=== PATIENT | female | born 1940 | race Caucasian/White ===

== ENCOUNTER → 2016-08-19 | Outpatient (CLI) | payer OTHER ==
[~2016-08-19] MED LIST: ALTACE5 MG PO; ASPIRIN81 M1 PO; CALCIUM 600 +1 EAC8 PO; OMEPRAZOLE20 MG PO; RAMIPRIL; SIMVASTATIN20 MG PO
== END | disposition home or self-care (01) ==
LOC: MAMMO 03:53
DX: Z12.31 Encounter for screening mammogram for malignant neoplasm of breast (principal)

== ENCOUNTER → 2016-11-03 | Outpatient (CLI) | payer OTHER | END | disposition home or self-care (01) | LOC: CT 02:51 | DX: I25.10 Atherosclerotic heart disease of native coronary artery without angina pectoris (principal); J40 Bronchitis, not specified as acute or chronic; R06.00 Dyspnea, unspecified ==

== ENCOUNTER → 2016-11-29 | Outpatient (CLI) | payer OTHER | END | disposition home or self-care (01) | LOC: RAD 10:08 | DX: R06.2 Wheezing (principal); R05 Cough; R06.02 Shortness of breath; I10 Essential (primary) hypertension ==

== ENCOUNTER → 2016-12-06 | Outpatient (CLI) | payer OTHER ==
--- NOTE | ~2016-12-06 | PF ---
[place], [place] PULMONARY FUNCTION TEST [facility]: [id number] UNIT #: [id number] ROOM: DOCTOR: CAROLINA JIMNEEZ MD,ZULY BIRTHDATE: [birth year] DOS: 12/06/[address] Bridget Navarro. HISTORY: The patient reported as 76-year-old female, height of 63 inches, weight of 210 pounds, BMI 37.2. The testing was done for assessment of symptoms of productive cough, wheezing and dyspnea with exertion. There were no past tobacco use. SPIROMETRY: The FVC was noted 2.65 liters, 97% predicted value normal. FEV1 was noted 2.08 liters at 102% predicted value normal as well. Ratio of FEV1/FVC was noted as 79%. Flow volume was suggestive of mild obstructive airway pattern. The patient's lung volumes, thoracic gas volume recorded at 75%, residual volume of 87%, total lung capacity 90%. Lung volumes were noted normal. The patient's lung diffusion was noted 91%, normal. The patient's airway resistance, passive conductance was normal. IMPRESSION: The test is suggestive only of mild obstructive airway pattern with flow volume loop otherwise normal pulmonary function test was noted. Clinical correlation would be advised. ZULY FIGUEROA MD CM:PFREPORT:PULMONARY FUNCTION TEST [id number] ZULY JIMENEZ MD
== END | disposition home or self-care (01) ==
LOC: CP 10:10
DX: R06.2 Wheezing (principal)

== ENCOUNTER → 2017-03-06 | Outpatient (CLI) | payer OTHER | END | disposition home or self-care (01) | LOC: RAD 01:04 | DX: M85.852 Other specified disorders of bone density and structure, left thigh (principal); N95.9 Unspecified menopausal and perimenopausal disorder; E55.9 Vitamin D deficiency, unspecified; Z78.0 Asymptomatic menopausal state ==

== ENCOUNTER → 2017-10-25 | Outpatient (CLI) | payer OTHER ==
[~2017-10-25] MED LIST changes: +ESTRADIOL T; +FLOVENT HFA10.6 GM PO; +GLUCOSAMINE1000 MG PO; +IBU800 M1 PO; +MULTI-VITAMIN1 EACH PO; -RAMIPRIL; +RAMIPRIL PO
--- NOTE | ~2017-10-25 | ST ---
[place], [place] EXERCISE STRESS TEST REPORT [id number] UN[facility] #: [id number] ROOM: DOCTOR: LIZET LONDON MD BIRTHDATE: [birth year] DOS: 10/25/2017 PHARMACOLOGIC STRESS TEST REASON: Chest discomfort. PROCEDURE: The patient was given rapid infusion of regadenoson 0.4 mg intravenously followed by a saline flush. She experienced lightheadedness and dyspnea with the infusion. Her resting electrocardiogram was normal. With the infusion, she did have a normal cardiac acceleration. Her resting heart rate of 83 mellissa to 123. She did develop frequent PVCs in a pattern of bigeminy that resolved spontaneously. No diagnostic ST changes were seen. Forty seconds after the infusion of regadenoson, she was given radionuclide intravenously. IMPRESSION: 1. Well-tolerated infusion of regadenoson. 2. Frequent premature ventricular contractions post infusion, resolved spontaneously. 3. Radionuclide administered. Please see the separate imaging report for further details of the patient's stress test results. LIZET LONDON MD CM:STRESS:EXERCISE STRESS TEST REPORT [id number] LIZET LONDON MD
== END | disposition home or self-care (01) ==
LOC: CARD 02:43
DX: R07.89 Other chest pain (principal); R53.81 Other malaise

== ENCOUNTER 2018-01-10 16:05 | Inpatient (IN) | payer OTHER ==
[~2018-01-10] VITALS: Ht 160 cm; Wt 96.6 kg
--- NOTE | ~2018-01-10 | EKG ---
[place], [place] ELECTROCARDIOGRAM REPORT NAME: MIRANDA MIGUEL UNIT #: [id number] ROOM: 512 DOCTOR: GUANAKITO DRAFT REPORT BIRTHDATE: [address] [facility] Test Date: 2018-01-11 Test Time: 03:43:05 Pat Name: MIRANDA MIGUEL Department: Room: 512 1 Gender: F Marketing Outreach Coordinator: : 1940 Requested By: BRO LACKEY Order Number: [id number] Reading MD: Nadeem Bueno MD Measurements Intervals [place] Rate: 90 P: 60 [place]: 183 QRS: -7 QRSD: 88 T: 70 QT: 395 QTc: 484 Interpretive Statements Sinus rhythm Abnormal R-wave progression, early transition Compared to ECG 01/10/2018 16:35:37 Left ventricular hypertrophy no longer present Electronically Signed On 01-11-2018 20:46:32 PDT by Nadeem Bueno MD CM:EKGRPT:ELECTROCARDIOGRAM REPORT [id number] BRO GAYTAN DRAFT REPORT BRO LACKEY DO
--- NOTE | ~2018-01-10 | PR ---
[place], [place] PROGRESS NOTE NAME: MIRANDA MIGUEL UNIT #: [id number] ROOM: 512 DOCTOR: LIZET LONDON MD BIRTHDATE: [birth year] DOS: 01/12/2018 SUBJECTIVE: The patient was seen at her bedside today 01/12/2018 with her in attendance. She thinks that she is feeling somewhat better. There is some concern that her left arm weakness may be related to rotator cuff injury or orthopedic problems, but I still do not think that explains all of her presenting symptoms including her lightheadedness and difficulty with ambulation. Happily her MRI and MRA showed no stroke or carotid vascular disease and there is no evidence for intracranial vascular disease. I reviewed her monitor, she does have episodes of sinus tachycardia, but no atrial fibrillation was documented. PHYSICAL EXAMINATION: VITAL SIGNS: Today, her pulse is 100 and regular, blood pressure is 155/83. NECK: Supple. She has no jugular distention. Carotids are full. LUNGS: Respirations are unlabored. Her chest is clear. HEART: Had a regular rhythm with an S4 gallop. EXTREMITIES: Showed no edema. An echocardiogram has been performed, but is not yet available for review. IMPRESSION: 1. Probable transient ischemic attack. 2. Essential hypertension. 3. Hyperlipidemia. 4. History of rheumatic fever as a child with negative examination at the present time. PLAN: We will review her ultrasound. If it does not show any significant valvular disease, then she may be discharged to home on dual antiplatelet therapy. She will need to have a physician to continue to monitor her blood pressure and make adjustments as appropriate. I think that an evaluation by a neurologist as an outpatient would also be helpful. We will plan on having her wear a 30-day mobile cardiac outpatient telemetry device (30-day event recorder). I will follow up with her in the office in about 6 weeks. I thank the hospitalist physicians for asking our advice regarding her care. [place], [place] PROGRESS NOTE NAME: MIRANDA MIGUEL UNIT #: [id number] ROOM: 512 DOCTOR: LIZET LONDON MD BIRTHDATE: [birth year] LIZET LONDON MD CM:PNTRANS [id number] LIZET LONDON MD 01/12/18 0959 interface
--- NOTE | ~2018-01-10 | EKG ---
[place], [place] ELECTROCARDIOGRAM REPORT NAME: MIRANDA MIGUEL UNIT #: [id number] ROOM: 512 DOCTOR: GUANAKITO DRAFT REPORT BIRTHDATE: [birth year] [facility] Test Date: 2018-01-11 Test Time: 01:09:10 Pat Name: MIRANDA MIGUEL Department: Room: 512 1 Gender: F Campground Hand: ANDREA : 1940 Requested By: BRO LACKEY Order Number: [id number] Reading MD: Nadeem Bueno MD Measurements Intervals [place] Rate: 88 P: 71 [place]: 147 QRS: -5 QRSD: 89 T: 84 QT: 371 QTc: 449 Interpretive Statements Sinus rhythm Abnormal R-wave progression, early transition Nonspecific T abnormalities, lateral leads Compared to ECG 01/10/2018 16:35:37 T-wave abnormality now present Left ventricular hypertrophy no longer present Electronically Signed On 01-11-2018 20:46:02 PDT by Nadeem Bueno MD CM:EKGRPT:ELECTROCARDIOGRAM REPORT [id number] BRO GAYTAN DRAFT REPORT BRO LACKEY DO
--- NOTE | ~2018-01-10 | EKG ---
[place], [place] ELECTROCARDIOGRAM REPORT NAME: MIRANDA MIGUEL UNIT #: [id number] ROOM: 512 DOCTOR: GUANAKITO DRAFT REPORT BIRTHDATE: [birth year] [facility] Test Date: 2018-01-10 Test Time: 16:35:37 Pat Name: MIRANDA MIGUEL Department: Room: 512 Gender: F Production Support Developer: CODY HASTINGSB: 1940 Requested By: JG BILLY Order Number: [id number] Reading MD: Nadeem Bueno MD Measurements Intervals [place] Rate: 86 P: 41 [place]: 139 QRS: -20 QRSD: 86 T: 56 QT: 372 QTc: 445 Interpretive Statements Sinus rhythm Left ventricular hypertrophy Baseline wander in lead(s) II,III,aVF Electronically Signed On 01-10-2018 19:06:38 PDT by Nadeem Bueno MD CM:EKGRPT:ELECTROCARDIOGRAM REPORT [id number] GJ GAYTAN DRAFT REPORT JG BILLY DO
--- NOTE | ~2018-01-10 | CON ---
[place], [place] REPORT OF CONSULTATION NAME: MIRANDA MIGUEL UNIT #: [id number] ROOM: 512 DOCTOR: LIZET LONDON MD BIRTHDATE: [birth year] DOS: 01/11/2018 CARDIOLOGY CONSULTATION REASON FOR CONSULTATION: Transient ischemic attack. CHIEF COMPLAINT: Unsteady gait and left-sided weakness. HISTORY OF PRESENT ILLNESS: The patient is a 77-year-old woman who has no previous history of cerebrovascular or coronary artery disease. She does have a history of hypertension. She did undergo myocardial perfusion stress test within the last several months that showed no evidence for ischemia. She was in her normal state of health until she awakened 5 days ago and felt lightheaded. She felt unsteady and had difficulty with her balance. She stated that this persisted throughout the day. The following day, she did have some heaviness in her left arm. She was seen by her primary physician the next day who noticed a gait disturbance. She was encouraged to come to the hospital and did present on 01/10/2018. Her symptoms were felt to be compatible with a stroke or transient ischemic attack. A CT scan of the head showed no acute change or bleed. She was hospitalized for further assessment. The patient still has some mild lightheadedness. She states that her left arm is still slightly heavy and she still feels a little unstable on her feet despite the fact that she has had symptoms for several days. PAST MEDICAL HISTORY: Includes 1. Rheumatic fever as a child. The patient did have a heart murmur at that time, but has not been documented as having a heart murmur as an adult. 2. Essential hypertension. 3. Hyperlipidemia. 4. Osteoarthritis. 5. 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 FAMILY HISTORY: Her father from renal insufficiency in his 50s. Her mother of leukemia in her 40s. MEDICATIONS PRIOR TO ADMISSION: Aspirin 81 mg b.i.d., calcium carbonate 500 mg daily, vitamin D 5000 units daily, Flovent 1 puff b.i.d., glucosamine 1000 mg daily, ibuprofen 800 mg p.o. t.i.d. p.r.n., multivitamin daily, omeprazole 20 mg daily, ramipril 5 mg daily, simvastatin 20 mg daily and Estrace cream topically 2 times a week. ALLERGIES: SHE LISTS ALLERGIES TO [employer]UIT EXTR[employer] AND STATES THAT SHE GETS CRAMPING IF SHE TRIES TO TAKE HIGH DOSES OR HIGH POTENCY STATIN. REVIEW OF SYSTEMS: The patient denies diplopia or loss of vision. She denies syncope. She denies nausea or vomiting. She denies fevers, chills, sweats or recent weight change. She does have some focal weakness of her left arm. She denies hemoptysis or hematemesis. She denies change in bowel or bladder habits. She denies blood in her stools or urine. She denies any skin rashes. She [place], [place] REPORT OF CONSULTATION NAME: MIRANDA MIGUEL UNIT #: [id number] ROOM: 512 DOCTOR: LIZET LONDON MD BIRTHDATE: [birth year] denies any peripheral edema. She denies heat or cold intolerance. She denies any polyuria or polydipsia. The remainder of the review of systems is negative except as noted above. SOCIAL HISTORY: The patient has never smoked. She does not consume excessive amounts of alcohol. PHYSICAL EXAMINATION: GENERAL: The patient is an overweight white female, awake, alert and oriented. VITAL SIGNS: Pulse is 95 and regular, blood pressure is 151/85. She is afebrile. She weighs 96.6 kg and has a body mass index 37.8. HEENT: Normocephalic and atraumatic. Extraocular muscles are intact. Sclerae are clear. Pupils equal, round and react to light. The oral mucosa is moist. Tongue is midline. NECK: Supple. She has no jugular distention. Carotids are full. There are no bruits. She has no neck or supraclavicular masses and no thyromegaly. RESPIRATORY: Respirations are unlabored. Her chest is clear to auscultation and percussion. She has no presacral edema or chest wall tenderness. CARDIOVASCULAR: Her heart has a regular rhythm with an S4 gallop. There is no S3 or murmur. The PMI is not displaced. There is no precordial heave, lift or thrill. ABDOMEN: Soft and normally active without masses, organomegaly or bruits. EXTREMITIES: Showed no edema. Peripheral pulses are easily palpated bilaterally. NEUROLOGIC: Pupils are equal, round and react to light. She has no nystagmus. She does have a slight left pronator drift. Her left hand die sizer is weaker than the right. No other focal defects are seen. LABORATORY DATA: I reviewed her electrocardiogram. It shows sinus rhythm with voltage criteria for left ventricular hypertrophy, but is an otherwise unremarkable tracing. Her monitor strips show no evidence for atrial fibrillation since her admission. Chest x-ray was unremarkable. Hemoglobin is 15.4, hematocrit 46.1. There were 9600 white cells, 220,000 platelets. INR is 1.0. Sodium is 142, potassium 4.1, chloride 108, CO2 of 27, BUN 15, creatinine 0.81, GFR is greater than 60. Hemoglobin A1c is 5.8, serial troponins have been negative. Total cholesterol is 172, LDL 95, HDL 45, triglycerides 158. TSH is normal at 4.57. IMPRESSION: 1. Transient ischemic attack versus small stroke. The patient does have symptoms and focal defects persisted despite 5 days of symptoms. Etiology not yet determined. 2. Essential hypertension. 3. Hyperlipidemia, well controlled. 4. History of rheumatic fever with a negative exam today. PLAN: For now, we will continue her on a heart monitor. We will add Plavix to [place], [place] REPORT OF CONSULTATION NAME: MIRADNA MIGUEL UNIT #: [id number] ROOM: 512 DOCTOR: LIZET LONDON MD BIRTHDATE: [birth year] her regimen as dual antiplatelet therapy. We will increase her UGERRERO inhibitor to better control her blood pressure. Since her symptoms appear to be posterior circulation in origin, we will be getting an MRI of the brain along with an MRA of her cerebral circulation to determine if she has cerebrovascular cause for her symptoms. Further recommendations will depend upon her response to therapy and the findings of the MRI and MRA. A carotid ultrasound has also been ordered and will be reviewed when it is available. An echocardiogram is also pending and will be reviewed for signs of valvular heart disease. [facility] and I thank the hospitalist physicians for asking our advice regarding her assessment. LIZET LONDON MD CM:CONSTR:REPORT OF CONSULTATION 3 01/11/182021 interface
[2018-01-10 16:08] VITALS: BP 174/94
[2018-01-10 16:31] LABS: BASO # 0.1 10*3/uL (0.0-0.1); BASO % 0.6 % (0.0-1.0); EOS # 0.3 10*3/uL (0.0-0.4); EOS % 3.3 % (1.0-4.0); HEMATOCRIT 49.1 % (37.0-47.0); HEMOGLOBIN 16.2 g/dl (12.0-16.0); LYMPH # 2.7 10*3/uL (1.3-4.4); LYMPH % 25.6 % (27.0-41.0); MEAN CELL VOLUME 90.1 fl (81.0-99.0); MEAN CORPUSCULAR HGB 29.7 pg (27.0-31.0); MEAN PLATELET VOLUME 11.5 fl (9.6-12.3); MONO % 9.3 % (3.0-9.0); NEUT # 6.4 10*3/uL (2.3-7.9); PLATELET COUNT AUTOMATED 206 10*3/uL (130-400); RED BLOOD COUNT 5.45 10*6/uL (4.10-5.10); RED CELL DISTRI WIDTH 13.6 % (0-14.5); WHITE BLOOD COUNT 10.4 10*3/uL (4.8-10.8)
[2018-01-10 16:39] LABS: ACT PARTIAL THROMBO TIME 23.5 SECONDS (20.8-31.5)
[2018-01-10 16:53] LABS: ALBUMIN 3.7 gm/dl (3.1-4.5); ALKALINE PHOSPHATASE 106 U/L (45-117); BUN 21 mg/dl (7-24); CHLORIDE 107 mmol/L (98-107); CREATININE 0.85 mg/dL (0.55-1.02); LIPASE 135 U/L (73-393); POTASSIUM 4.1 mmol/L (3.5-5.1); SGOT/AST 24 IU/L (3-35); SGPT/ALT 37 U/L (12-78); SODIUM 140 mmol/L (136-145); TOTAL PROTEIN 7.6 gm/dL (6.4-8.2)
[2018-01-10 17:01] LABS: TROPONIN I < 0.015 ng/ml (<0.045)
[2018-01-10 18:23] LABS: BILIRUBIN NEGATIVE (NEGATIVE); BLOOD NEGATIVE (NEGATIVE); CLARITY SL CLOUDY (CLEAR); COLOR YELLOW (YELLOW); GLUCOSE NEGATIVE (NEGATIVE); KETONE NEGATIVE (NEGATIVE); LEUKO ESTERASE NEGATIVE (NEGATIVE); NITRITE NEGATIVE (NEGATIVE); SPECIFIC GRAVITY 1.025 (1.005-1.030); UROBILINOGEN 0.2 E.U./dl (0.2-1.0)
[2018-01-10 18:52] LABS: BACTERIA 1+; EPITHELIAL CELLS TNTC; RBC 0-2 rbc/hpf (0-2)
[2018-01-10 19:19] VITALS: BP 165/104
[2018-01-10 20:00] VITALS: BP 159/85
[2018-01-10] MEDS ORDERED: VITAMIN D5000 UNIT PO (20:14)
[2018-01-10] MEDS ORDERED: CALCIUM500 M1 PO (20:15)
[2018-01-11] VITALS (7 sets, daily range): BP systolic 124–156; BP diastolic 68–87
[2018-01-11 06:26] LABS: BASO % 0.4 % (0.0-1.0); EOS # 0.4 10*3/uL (0.0-0.4); EOS % 3.8 % (1.0-4.0); HEMATOCRIT 46.1 % (37.0-47.0); HEMOGLOBIN 15.4 g/dl (12.0-16.0); LYMPH # 2.4 10*3/uL (1.3-4.4); LYMPH % 24.6 % (27.0-41.0); MEAN CELL VOLUME 89.9 fl (81.0-99.0); MEAN CORPUSCULAR HGB CONC 33.4 g/dl (33.0-37.0); MEAN PLATELET VOLUME 11.6 fl (9.6-12.3); MONO # 0.9 10*3/uL (0.1-1.0); MONO % 9.3 % (3.0-9.0); NEUT # 5.9 10*3/uL (2.3-7.9); NEUT % 61.7 % (47.0-73.0); PLATELET COUNT AUTOMATED 220 10*3/uL (130-400); RED BLOOD COUNT 5.13 10*6/uL (4.10-5.10); RED CELL DISTRI WIDTH 13.6 % (0-14.5); WHITE BLOOD COUNT 9.6 10*3/uL (4.8-10.8)
[2018-01-11 06:41] LABS: ALBUMIN 3.2 gm/dl (3.1-4.5); ALKALINE PHOSPHATASE 90 U/L (45-117); BUN 15 mg/dl (7-24); CHLORIDE 108 mmol/L (98-107); CHOLESTEROL 172 mg/dL (<200); CREATININE 0.81 mg/dL (0.55-1.02); HDL CHOLESTEROL 45 mg/dl (40-60); LDL CHOLESTEROL 95 mg/dL (9-159); PHOSPHOROUS 3.2 mg/dL (2.5-4.9); POTASSIUM 4.1 mmol/L (3.5-5.1); SGPT/ALT 37 U/L (12-78); SODIUM 142 mmol/L (136-145); TOTAL PROTEIN 7.2 gm/dL (6.4-8.2); TRIGLYCERIDES 158 mg/dl (<150); VLDL CHOLESTEROL 32 mg/dL (6-40)
[2018-01-11 07:33] LABS: SGOT/AST 22 IU/L (3-35)
[2018-01-11 08:01] LABS: VITAMIN D, 25-HYDROXY 58.2 ng/mL (30-100)
[2018-01-12 08:00] VITALS: BP 118/76
[2018-01-12] MEDS ORDERED: CLOPIDOGREL75 MG PO (11:21)
[2018-01-12] MEDS ORDERED: LISINOPRIL10 M1 PO (11:21)
== END 2018-01-12 13:35 | disposition home or self-care (01) | DRG 69 ==
LOC: ED 16:05 → 5E 18:35 → EDHOLD 18:35 → 5E 18:42
PROVIDERS: Emergency Medicine; Internal Medicine
DX: G45.9 Transient cerebral ischemic attack, unspecified (principal); R65.10 Systemic inflammatory response syndrome (SIRS) of non-infectious origin without acute organ dysfunction; R79.89 Other specified abnormal findings of blood chemistry; I10 Essential (primary) hypertension; E78.5 Hyperlipidemia, unspecified; D64.9 Anemia, unspecified; E83.41 Hypermagnesemia; M19.90 Unspecified osteoarthritis, unspecified site; M79.10 Myalgia, unspecified site; Z91.018 Allergy to other foods; Z79.899 Other long term (current) drug therapy; Z79.82 Long term (current) use of aspirin; Z83.3 Family history of diabetes mellitus; Z82.49 Family history of ischemic heart disease and other diseases of the circulatory system; Z80.6 Family history of leukemia; Z84.1 Family history of disorders of kidney and ureter

== ENCOUNTER → 2018-03-01 | Outpatient (CLI) | payer OTHER ==
[~2018-03-01] MED LIST changes: +CALCIUM500 M1 PO; +CLOPIDOGREL75 MG PO; +LISINOPRIL10 M1 PO; +VITAMIN D5000 UNIT PO
[2018-03-01 11:50] LABS: BUN 18 mg/dl (7-24); CHLORIDE 103 mmol/L (98-107); CREATININE 0.98 mg/dL (0.55-1.02); POTASSIUM 4.2 mmol/L (3.5-5.1); SODIUM 140 mmol/L (136-145)
== END | disposition home or self-care (01) ==
LOC: LAB 11:02
PROVIDERS: Internal Medicine Cardiovascular Disease
DX: I10 Essential (primary) hypertension (principal); G45.9 Transient cerebral ischemic attack, unspecified

== ENCOUNTER → 2019-03-08 | Outpatient (CLI) | payer OTHER ==
[2019-03-08 10:26] LABS: BILIRUBIN NEGATIVE (NEGATIVE); BLOOD NEGATIVE (NEGATIVE); CLARITY CLOUDY (CLEAR); COLOR YELLOW (YELLOW); GLUCOSE NEGATIVE (NEGATIVE); KETONE NEGATIVE (NEGATIVE); LEUKO ESTERASE NEGATIVE (NEGATIVE); NITRITE NEGATIVE (NEGATIVE); UROBILINOGEN 0.2 E.U./dl (0.2-1.0)
[2019-03-08 10:30] LABS: HEMATOCRIT 49.8 % (37.0-47.0); HEMOGLOBIN 16.4 g/dl (12.0-16.0); MEAN CELL VOLUME 91.2 fl (81.0-99.0); MEAN CORPUSCULAR HGB CONC 32.9 g/dl (33.0-37.0); MEAN PLATELET VOLUME 11.5 fl (9.6-12.3); PLATELET COUNT AUTOMATED 243 10*3/uL (130-400); RED BLOOD COUNT 5.46 10*6/uL (4.10-5.10); WHITE BLOOD COUNT 9.3 10*3/uL (4.8-10.8)
[2019-03-08 10:39] LABS: BACTERIA 3+; EPITHELIAL CELLS 40-45
[2019-03-08 11:09] LABS: ATYPICAL LYMPHS 4 % (0-0); PLATELET SUFFICIENCY NORMAL (NORMAL); TOTAL CELLS COUNTED 100 #CELLS
== END | disposition home or self-care (01) ==
LOC: LAB 09:27
PROVIDERS: Family Medicine
DX: D58.2 Other hemoglobinopathies (principal); R73.9 Hyperglycemia, unspecified; R82.998 Other abnormal findings in urine

== ENCOUNTER → 2019-06-13 | Outpatient (CLI) | payer OTHER ==
[2019-06-13 12:41] LABS: BUN 21 mg/dl (7-24); CHLORIDE 106 mmol/L (98-107); SODIUM 138 mmol/L (136-145)
== END | disposition home or self-care (01) ==
LOC: LAB 10:58
PROVIDERS: Internal Medicine Critical Care Medicine
DX: Z79.899 Other long term (current) drug therapy (principal)

== ENCOUNTER → 2020-12-21 | Outpatient (CLI) | payer OTHER | END | disposition home or self-care (01) | LOC: LAB 16:46 → RAD 16:46 | PROVIDERS: ATTEND Family Medicine | DX: J40 Bronchitis, not specified as acute or chronic (principal) ==

== ENCOUNTER → 2022-02-15 | Outpatient (CLI) | payer OTHER | LOC: RAD 08:51 | PROVIDERS: ATTEND Family Medicine | DX: R05.1 Acute cough (principal) ==

== ENCOUNTER → 2022-03-08 | Outpatient (CLI) | payer OTHER | END | disposition home or self-care (01) | LOC: RAD 01:58 | PROVIDERS: ATTEND Chiropractor | DX: M47.817 Spondylosis without myelopathy or radiculopathy, lumbosacral region (principal); M48.061 Spinal stenosis, lumbar region without neurogenic claudication ==

== ENCOUNTER 2023-02-07 15:44 | Emergency (ER) | payer OTHER ==
[~2023-02-07] VITALS: Ht 160 cm; Wt 96.6 kg
[~2023-02-07 15:44] MED LIST changes: -XARE15TA PO
[2023-02-07 16:13] VITALS: BP 174/89
[2023-02-07] MEDS ORDERED: XARE15TA PO (16:33)
== END 2023-02-07 16:35 | disposition home or self-care (01) ==
LOC: ED 15:44
DX: I82.401 Acute embolism and thrombosis of unspecified deep veins of right lower extremity (principal); I10 Essential (primary) hypertension; J45.909 Unspecified asthma, uncomplicated; E78.00 Pure hypercholesterolemia, unspecified; K21.9 Gastro-esophageal reflux disease without esophagitis; Z91.018 Allergy to other foods; Z98.890 Other specified postprocedural states

== ENCOUNTER → 2023-02-07 | Outpatient (CLI) | payer OTHER ==
[~2023-02-07] MED LIST changes: +XARE15TA PO
== END | disposition home or self-care (01) ==
LOC: US 14:30
PROVIDERS: ATTEND Nurse Practitioner Family
DX: I82.431 Acute embolism and thrombosis of right popliteal vein (principal); I82.811 Embolism and thrombosis of superficial veins of right lower extremity

== ENCOUNTER → 2023-03-30 | Outpatient (CLI) | payer OTHER ==
[~2023-03-30] MED LIST changes: +XARE15TA PO
== END | disposition home or self-care (01) ==
LOC: RESCLI 03:34
PROVIDERS: ATTEND Internal Medicine
DX: J44.9 Chronic obstructive pulmonary disease, unspecified (principal); I82.409 Acute embolism and thrombosis of unspecified deep veins of unspecified lower extremity; J31.0 Chronic rhinitis; I10 Essential (primary) hypertension; K21.9 Gastro-esophageal reflux disease without esophagitis; E78.5 Hyperlipidemia, unspecified; M16.0 Bilateral primary osteoarthritis of hip; Z98.890 Other specified postprocedural states; Z79.899 Other long term (current) drug therapy

== ENCOUNTER 2023-05-15 02:34 | Emergency (ER) | payer OTHER ==
[~2023-05-15] VITALS: Ht 157.4 cm; Wt 98.0 kg
[2023-05-15 04:20] VITALS: BP 191/91
[2023-05-15] MEDS ORDERED: Phenylephrine HydrochloridE 0.5% NASAL 15 ML BOTTLE NAS ONE (04:35)
[2023-05-15] MEDS ORDERED: AMOX-CLAV 875-1 EACH PO (12:38)
== END 2023-05-15 04:52 | disposition home or self-care (01) ==
LOC: ED 02:34
DX: R04.0 Epistaxis (principal); I10 Essential (primary) hypertension; J45.909 Unspecified asthma, uncomplicated; K21.9 Gastro-esophageal reflux disease without esophagitis; Z86.718 Personal history of other venous thrombosis and embolism; Z91.018 Allergy to other foods; Z98.890 Other specified postprocedural states

== ENCOUNTER 2023-05-15 10:25 | Emergency (ER) | payer OTHER ==
[~2023-05-15] VITALS: Ht 157.4 cm; Wt 98.0 kg
[2023-05-15 10:34] VITALS: BP 169/100
[2023-05-15] MEDS ORDERED: Phenylephrine Hydrochloride 0.25% Nasal 40 ml bottle NAS ONE (11:30)
[2023-05-15] MEDS ORDERED: AMOX-CLAV 875-1 EACH PO (12:38)
== END 2023-05-15 12:43 | disposition home or self-care (01) ==
LOC: ED 10:25
DX: R04.0 Epistaxis (principal); I10 Essential (primary) hypertension; E78.5 Hyperlipidemia, unspecified; E83.41 Hypermagnesemia; D64.9 Anemia, unspecified; Z86.73 Personal history of transient ischemic attack (TIA), and cerebral infarction without residual deficits; J45.909 Unspecified asthma, uncomplicated; E78.00 Pure hypercholesterolemia, unspecified; K21.9 Gastro-esophageal reflux disease without esophagitis; Z91.018 Allergy to other foods; Z86.718 Personal history of other venous thrombosis and embolism; Z98.890 Other specified postprocedural states

== ENCOUNTER → 2023-08-29 | Outpatient (CLI) | payer OTHER ==
[~2023-08-29] MED LIST changes: +AMOX-CLAV 875-1 EACH PO
[2023-08-29 10:16] LABS: ALKALINE PHOSPHATASE 92 U/L (46-116); BUN 20 mg/dl (9-23); CHLORIDE 105 mmol/L (98-107); CHOLESTEROL 200 mg/dL (<200); LDL CHOLESTEROL 117 mg/dL (9-159); POTASSIUM 4.1 mmol/L (3.4-5.1); SGPT/ALT 23 U/L (5-49); TOTAL PROTEIN 7.3 gm/dL (6.0-8.0); TRIGLYCERIDES 175 mg/dl (<150)
== END ==
LOC: US 01:25
PROVIDERS: ATTEND Nurse Practitioner Family
DX: I10 Essential (primary) hypertension (principal); E55.9 Vitamin D deficiency, unspecified; E78.5 Hyperlipidemia, unspecified

== ENCOUNTER → 2024-02-20 | Outpatient (CLI) | payer OTHER | END | disposition home or self-care (01) | LOC: RAD 08:38 | PROVIDERS: ATTEND Nurse Practitioner Family | DX: R05.1 Acute cough (principal); R06.2 Wheezing ==